=== PATIENT | female | born 1970 | race Caucasian/White ===

== ENCOUNTER → 2018-01-06 | Outpatient (CLI) | payer BC ==
--- NOTE | 2018-01-06 08:11 | US ---
EXAMINATION TYPE: US pelvic complete DATE OF EXAM: 01/06/2018 COMPARISON: NONE CLINICAL HISTORY: N92.1 Excessive and frequent menstruation. TECHNIQUE: Transabdominal (TA). Date of LMP: 12/18/2017 EXAM MEASUREMENTS: Uterus: 10.0 x 7.7 x 5.8 cm Endometrial Stripe: 0.8 cm Right Ovary: 1.9 x 2.1 x 0.9 cm Left Ovary: 2.9 x 2.4 x 2.1 cm 1. Uterus: Anteverted nabothian cyst noted measures 1.6 cm 2. Endometrium: wnl 3. Right Ovary: wnl 4. Left Ovary: wnl 5. Bilateral Adnexa: wnl 6. Posterior cul-de-sac: no free fluid IMPRESSION: 1. Cervical nabothian cyst. Otherwise unremarkable study.
== END | disposition home or self-care (01) ==
LOC: RADUSWWP 07:34
PROVIDERS: ATTEND Family Medicine
DX: N88.8 Other specified noninflammatory disorders of cervix uteri (principal)
CPT/HCPCS: 76856

== ENCOUNTER 2019-09-18 10:23 | Emergency (ER) | payer BC ==
[2019-09-18] MEDS ORDERED: SODIUM CHLORIDE 0.9% 500 ML 500 ML IV STA (10:25)
--- NOTE | 2019-09-18 10:54 | CT ---
EXAMINATION TYPE: CT brain wo con DATE OF EXAM: 09/18/2019 COMPARISON: 12/24/2014 HISTORY: Altered mental status CT DLP: 1064.4 mGycm. Automated Exposure Control for Dose Reduction was Utilized. TECHNIQUE: CT scan of the head is performed without contrast. FINDINGS: A postsurgical change involving the left temporal lobe with encephalomalacia extending into the lower margin of the parietal lobe. Presphenoid calcified mass is been resected. No midline shift or mass effect. Ventricular system is midline. No acute hemorrhage. Cerebellar tonsils are low-lying in position. This is similar to the prior exam. IMPRESSION: 1. No acute intracranial hemorrhage, mass effect, or midline shift is seen. If there is concern for a cute ischemia correlate with MRI as clinically warranted. 2. Postsurgical change with encephalomalacia involving the left temporal and parietal lobes. 3. Stable low-lying cerebellar tonsils.
--- NOTE | 2019-09-18 10:56 | XR ---
EXAMINATION TYPE: XR chest 2V DATE OF EXAM: 09/18/2019 COMPARISON: NONE TECHNIQUE: PA and lateral views submitted. HISTORY: Altered mental status FINDINGS: The lungs are clear and there is no pneumothorax, pleural effusion, or focal pneumonia. No overt fa ilure. Biapical pleural thickening. Hypertrophic and degenerative change of the spine. Surgical clips in the abdomen. IMPRESSION: 1. No acute process.
[2019-09-18 10:59] LABS: Basophils # (A) 0.2 k/uL (0-0.2); Basophils % (A) 1 %; Eosinophils # (A) 0.2 k/uL (0-0.7); Eosinophils % (A) 2 %; HCT 40.8 % (34.0-46.0); HGB 13.6 gm/dL (11.4-16.0); Lymphocytes # (A) 1.2 k/uL (1.0-4.8); Lymphocytes % (A) 11 %; MCHC 33.3 g/dL (31.0-37.0); MCV 87.1 fL (80.0-100.0); Mean Platelet Volume 9.1; Monocytes # (A) 0.5 k/uL (0-1.0); Monocytes % (A) 4 %; Neutrophils # (A) 8.4 k/uL (1.3-7.7); Neutrophils % (A) 81 %; Platelet Count 263 k/uL (150-450); RBC 4.68 m/uL (3.80-5.40); RDW 14.1 % (11.5-15.5); WBC 10.4 k/uL (3.8-10.6)
[2019-09-18 11:09] LABS: INR 0.9 (<1.2); Partial Thromboplastin Time 23.8 sec (22.0-30.0); Prothrombin Time 9.5 sec (9.0-12.0)
[2019-09-18 11:11] LABS: ALT 23 U/L (4-34); AST 34 U/L (14-36); African American GFR (CKD) >90 (>60 ml/min/1.73 sqM); Albumin 4.3 g/dL (3.5-5.0); Alkaline Phosphatase 66 U/L (38-126); Anion Gap 7 mmol/L; Blood Urea Nitrogen 7 mg/dL (7-17); Calcium 8.5 mg/dL (8.4-10.2); Carbon Dioxide 27 mmol/L (22-30); Chloride 107 mmol/L (98-107); Glucose 101 mg/dL (74-99); Non-African American GFR(CKD) >90 (>60 ml/min/1.73 sqM); Potassium 3.5 mmol/L (3.5-5.1); Sodium 141 mmol/L (137-145); Total Bilirubin 0.6 mg/dL (0.2-1.3); Total Protein 7.3 g/dL (6.3-8.2)
--- NOTE | 2019-09-18 12:24 | ED ---
General Adult HPI - General Chief complaint: Neuro Symptoms/Deficit Stated complaint: altered mental status Time Seen by Provider: 09/18/19 10:23 Source: EMS, RN notes reviewed, old records reviewed Limitations: no limitations - History of Present Illness Initial comments: This is a 48-year-old female presents emergency department with past medical history significant for meningioma and 2 craniotomies in the past. Patient states the first was 5 years ago. Patient comes in today because she had no episode of expressive aphasia last 30 minutes. Prior to arrival symptoms co mpletely resolved. Patient states this happened multiple times in the past and her neurologist is told her that this is not a problem. Patient denies any complaints currently. Patient denies any chest pain shortness of breath difficulty breathing. Patient denies any fever chills or cough. Patient denies any abdominal pain patient denies nausea vomiting diarrhea. - Related Data Home Medications Medication Instructions Recorded Confirmed Ibuprofen [Motrin Ib] 400 mg PO Q6H PRN 09/18/19 09/18/19 Allergies Allergy/AdvReac Type Severity Reaction Status Date / Time acetaminophen [From [place]] Allergy Swelling Verified 09/18/19 11:27 hydrocodone bitartrate Allergy Swelling Verified 09/18/19 11:27 [From [place]] Review of Systems ROS Statement: Those systems with pertinent positive or pertinent negative responses have been documented in the HPI. ROS Other: All systems not noted in ROS Statement are negative. Past Medical History Past Medical History: No Reported History Additional Past Medical History / Comment(s): Expressive dysphagia History of Any Multi-Drug Resistant Organisms: None Reported Past Surgical History: Cholecystectomy Additional Past Surgical History / Comment(s): Brain Tumor Removel 2014 Past Psychological History: Depression Smoking Status: Never smoker Past Alcohol Use History: Occasional Past Drug Use History: None Reported General Exam - General Exam Comments Initial Comments: GENERAL: Patient is well-developed and well-nourished. Patient is nontoxic and well- hydrated and is in no acute distress. ENT: Neck is soft and supple. No significant lymphadenopathy is noted. Oropharynx is clear. Moist mucous membranes. Neck has full range of motion without eliciting any pain. EYES: The sclera were anicteric and conjunctiva were pink and moist. Extraocular movements were intact and pupils were equal round and reactive to light. Eyelids were unremarkable. PULMONARY: Unlabored respirations. Good breath sounds bilaterally. CARDIOVASCULAR: There is a regular rate and rhythm without any murmurs gallops or rubs. SKIN: Skin is clear with no lesions or rashes and otherwise unremarkable. NEUROLOGIC: Patient is alert and oriented x3. She has chronic left-sided facial droop from the surgery. Motor and sensory are also intact. Normal speech, volume and content. Symmetrical smile. MUSCULOSKELETAL: Normal extremities with adequate strength and full range of motion. LYMPHATICS: No significant lymphadenopathy is noted PSYCHIATRIC: Normal psychiatric evaluation. Limitations: no limitations Course Vital Signs 09/18/19 09/18/19 09/18/19 10:23 11:28 11:47 Temperature 98.5 F 98.6 F Pulse Rate 85 85 94 Respiratory 18 18 16 Rate Blood Pressure 198/104 198/104 173/114 O2 Sat by Pulse 98 98 99 Oximetry Medical Decision Making - Medical Decision Making EKG shows sinus rhythm with occasional PVC at 90 bpm AL interval 264 Blanco is 70 QT interval 400 QTC is 489. Patient's EKG shows no ST segment elevation or depression. Computed tomography scan showed no acute abnormality. Patient was a symptomatically throughout her ED stay. Patient's MRI and MRA showed no acute abnormality. Went back and talked to the patient and I recommended that she stay and be seen by neurology and she did not want to stay. I have discussed conversation at least 3 different times with the patient with family present and she refused to stay. Patient will follow-up with her own neurologist. - Lab Data Result diagrams: 09/18/19 10:45 09/18/19 10:45 Lab Results 09/18/19 09/18/19 09/18/19 Range/Units 10:45 10:45 10:45 WBC 10.4 (3.8-10.6) k/uL RBC 4.68 (3.80-5.40) m/uL Hgb 13.6 (11.4-16.0) gm/dL Hct 40.8 (34.0-46.0) % MCV 87.1 (80.0-100.0) fL MCH 29.0 (25.0-35.0) pg MCHC 33.3 (31.0-37.0) g/dL RDW 14.1 (11.5-15.5) % Plt Count 263 (150-450) k/uL Neutrophils % 81 % Lymphocytes % 11 % Monocytes % 4 % Eosinophils % 2 % Basophils % 1 % Neutrophils # 8.4 H (1.3-7.7) k/uL Lymphocytes # 1.2 (1.0-4.8) k/uL Monocytes # 0.5 (0-1.0) k/uL Eosinophils # 0.2 (0-0.7) k/uL Basophils # 0.2 (0-0.2) k/uL PT 9.5 (9.0-12.0) sec INR 0.9 (<1.2) APTT 23.8 (22.0-30.0) sec Sodium 141 (137-145) mmol/L Potassium 3.5 (3.5-5.1) mmol/L Chloride 107 (98-107) mmol/L Carbon Dioxide 27 (22-30) mmol/L Anion Gap 7 mmol/L BUN 7 (7-17) mg/dL Creatinine 0.72 (0.52-1.04) mg/dL Est GFR (CKD-EPI)AfAm >90 (>60 ml/min/1.73 sqM) Est GFR (CKD-EPI)NonAf >90 (>60 ml/min/1.73 sqM) Glucose 101 H (74-99) mg/dL Calcium 8.5 (8.4-10.2) mg/dL Total Bilirubin 0.6 (0.2-1.3) mg/dL AST 34 (14-36) U/L ALT 23 (4-34) U/L Alkaline Phosphatase 66 (38-126) U/L Troponin I (0.000-0.034) ng/mL Total Protein 7.3 (6.3-8.2) g/dL Albumin 4.3 (3.5-5.0) g/dL 09/18/19 Range/Units 10:45 WBC (3.8-10.6) k/uL RBC (3.80-5.40) m/uL Hgb (11.4-16.0) gm/dL Hct (34.0-46.0) % MCV (80.0-100.0) fL MCH (25.0-35.0) pg MCHC (31.0-37.0) g/dL RDW (11.5-15.5) % Plt Count (150-450) k/uL Neutrophils % % Lymphocytes % % Monocytes % % Eosinophils % % Basophils % % Neutrophils # (1.3-7.7) k/uL Lymphocytes # (1.0-4.8) k/uL Monocytes # (0-1.0) k/uL Eosinophils # (0-0.7) k/uL Basophils # (0-0.2) k/uL PT (9.0-12.0) sec INR (<1.2) APTT (22.0-30.0) sec Sodium (137-145) mmol/L Potassium (3.5-5.1) mmol/L Chloride (98-107) mmol/L Carbon Dioxide (22-30) mmol/L Anion Gap mmol/L BUN (7-17) mg/dL Creatinine (0.52-1.04) mg/dL Est GFR (CKD-EPI)AfAm (>60 ml/min/1.73 sqM) Est GFR (CKD-EPI)NonAf (>60 ml/min/1.73 sqM) Glucose (74-99) mg/dL Calcium (8.4-10.2) mg/dL Total Bilirubin (0.2-1.3) mg/dL AST (14-36) U/L ALT (4-34) U/L Alkaline Phosphatase (38-126) U/L Troponin I <0.012 (0.000-0.034) ng/mL Total Protein (6.3-8.2) g/dL Albumin (3.5-5.0) g/dL Disposition Clinical Impression: Transient cerebral ischemia, Hypertension Disposition: HOME SELF-CARE Condition: Good Instructions (If sedation given, give patient instructions): Transient Ischemic Attack (ED) Is patient prescribed a controlled substance at d/c from ED?: No Referrals: London Tovar DO [Primary Care Provider] - 1-2 days Time of Disposition: 14:53
--- NOTE | 2019-09-18 14:56 | MR ---
EXAMINATION TYPE: MR brain wo con DATE OF EXAM: 09/18/2019 COMPARISON: CT brain 12/24/2014, 09/18/2019 HISTORY: Expressive aphasia, hx tumor resection CONTRAST: Performed utilizing 0 mL intravenous Gadavist gadolinium contrast. TECHNIQUE: Multiplanar, multiecho imaging on a 3.0 Lash[place] magnet is performed through the brain. Stud y is performed within 24 hours of arrival to the hospital. The craniovertebral junction is normal. The pituitary is normal. Diffusion-weighted imaging is performed. No abnormal hyperintensity is present to suggest an acute i ntracranial infarct or acute ischemic change. Normal vascular flow voids appear to be present. No suspicious signal within the left M1 segment is e vident. There is been a prior surgery at the anterior left temporal lobe. Ex vacuo effect is evident. There i s post surgical white matter hyperintensity present . Study is without contrast. Ventricles and sulci away from the surgery site are appropriate for the patient age. IMPRESSIONS: 1. Postsurgical change anterior left temporal lobe with white matter change. Suspicious recurrent mas s is not identified on noncontrast MRI. No suspicious changes to suggest acute ischemia or left middl e cerebral artery obstruction on MRI.
--- NOTE | 2019-09-18 14:58 | MR ---
EXAMINATION TYPE: MR angio head wo con DATE OF EXAM: 09/18/2019 COMPARISON: NONE HISTORY: Expressive aphasia, hx tumor resection TECHNIQUE: Utilizing 3-D [id number] intracranial MRA of the [place] was performed. FINDINGS: The vertebrobasilar and carotid systems are patent. Left vertebral artery is dominant. Left posterior cerebral artery originates from the anterior circulation. There appears to be a patent right posteri or communicating artery. Visualized branches of the posterior, middle, and anterior cerebral arteries appear to be patent. 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 Craniotomy defect and encephalomalacia involving the left temporal lobe noted. IMPRESSION: 1. No evidence of aneurysm or vascular malformation. Visualized vasculature appears to be patent.
[2019-09-18 15:05] VITALS: BP 153/100; PULSE 99; RESP 18
[2019-09-18 15:11] VITALS: TEMP 98.3
== END 2019-09-18 15:07 | disposition home or self-care (01) ==
LOC: EC 10:23
DX: G45.9 Transient cerebral ischemic attack, unspecified (principal); I10 Essential (primary) hypertension; R29.810 Facial weakness; Z88.5 Allergy status to narcotic agent; Z88.6 Allergy status to analgesic agent
CPT/HCPCS: 36415; 70450; 70544; 70551; 71046; 80053; 84484; 85025; 85610; 85730; 93005; 99285

== ENCOUNTER → 2021-02-06 | Outpatient (CLI) | payer BC ==
--- NOTE | 2021-02-11 13:38 | MM ---
Reason for exam: screening (asymptomatic). Last mammogram was performed 7 years and 1 month ago. History: Taking hormonal contraceptives for 3 years beginning at age 40. Physical Findings: A clinical breast exam by your physician is recommended on an annual basis and results should be correlated with mammographic findings. MG Screening Mammo w CAD Bilateral CC and MLO view(s) were taken. Prior study comparison: January 15, 2014, bilateral MG screening mammo w CAD. The breast tissue is heterogeneously dense. This may lower the sensitivity of mammography. There are benign appearing round, dystrophic calcifications bilaterally. There is chronic and new nodularity bilaterally. ASSESSMENT: Incomplete: need additional imaging evaluation, BI-RAD 0 RECOMMENDATION: Ultrasound of both breasts. [facility] will attempt to contact patient to return for ultrasound.
== END | disposition home or self-care (01) ==
LOC: RADMAMWWP 10:17
PROVIDERS: ATTEND Obstetrics & Gynecology
DX: Z12.31 Encounter for screening mammogram for malignant neoplasm of breast (principal)
CPT/HCPCS: 77067

== ENCOUNTER → 2021-02-27 | Outpatient (CLI) | payer BC ==
--- NOTE | 2021-02-27 10:01 | USB ---
Reason for exam: additional evaluation requested from abnormal screening. History: Taking hormonal contraceptives for 3 years beginning at age 40. Physical Findings: Nurse did not find any significant physical abnormalities on exam. US Breast Workup Limited HERBIE Right limited breast ultrasound including focal area of concern, retroareolar and axilla demonstrates a 0.4 x 0.4 x 0.3cm oval, cystic lesion at 9 o'clock, a 0.7 x 0.8 x 0.5cm oval, cystic cluster at 10 o'clock, a 0.5 x 0.6 x 0.4cm oval, cystic lesion at 11 o'clock, a 2.3 x 2.5 x 0.9cm complex cluster at 10 o'clock, probably benign and a 1.9 x 1.3 x 0.7cm lymph node at the axilla. Left complete breast ultrasound includes all four quadrants, the retroareolar region and axilla. Finding demonstrates a 1.4 x 1.4 x 0.8cm cystic cluster at 12 o'clock, a 0.3 x 0.3 x 0.2cm oval, cystic, hypoechoic, complex cyst at 2 o'clock, a 1.1 x 0.7 x 0.5cm oval, cystic cluster at 3 o'clock, a 0.7 x 0.5 x 0.3cm oval, cystic lesion at 9 o'clock, a 0.2 x 0.4 x 0.3cm irregular, complex, cystic lesion at 10 o'clock, probably benign and a 0.9 x 0.9 x 0.7cm oval, cystic cluster at 11 o'clock, complex cyst lobulated. These results were verbally communicated with the patient and result sheet given to the patient on 02/27/21. ASSESSMENT: Probably benign, BI-RAD 3 RECOMMENDATION: Ultrasound of both breasts in 6 months.
== END | disposition home or self-care (01) ==
LOC: RADUSWWP 07:58
PROVIDERS: ATTEND Obstetrics & Gynecology
DX: N60.01 Solitary cyst of right breast (principal); N60.02 Solitary cyst of left breast